=== PATIENT | female | born 1965 | race Caucasian/White ===

== ENCOUNTER 2017-03-06 11:50 | Inpatient (IN) | payer MEDICARE, OTHER ==
[~2017-03-06] VITALS: Ht 172.7 cm; Wt 97.5 kg
[~2017-03-06 11:50] MED LIST: ALBUTEROL2.5 MG/3 M INH; AMITIZA24 MCG PO; ASPIRIN325 MG PO; CLARITIN10 M2 PO; CRESTOR40 MG PO; CYMBALTA60 MG PO; FENOFIBRATE160 MG PO; FISH OIL 1,0001 EAC4 PO; FLEXERIL 10 MG10 MG PO; HABITROL 21 MG P1 EA TD; HUMALOG100 UNIT/1 SQ; LEVEMIR100 UNIT/1 SQ; NEURONTIN 400400 MG PO; NEXIUM40 MG PO; NORCO 5-325 TA1 EACH PO; PLAVIX 75 MG TA75 MG PO; PROVENTIL HFA 61 INH INH; PYRIDIUM100 MG PO; SPIRIVA HANDIH18 MCG INH; SYMBICORT 160-1 INHA INH; TYLENOL 325MG325 MG PO
[2017-03-06 12:59] LABS: RED BLOOD COUNT 5.16 M/UL (4.00-5.10); WHITE BLOOD COUNT 8.9 K/UL (4.5-11.0)
[2017-03-06 13:45] LABS: BUN/CREATININE RATIO 11 (0-10)
[2017-03-07 05:18] LABS: BUN/CREATININE RATIO 13 (0-10)
[2017-03-07 05:33] LABS: RED BLOOD COUNT 4.55 M/UL (4.00-5.10); WHITE BLOOD COUNT 12.5 K/UL (4.5-11.0)
[2017-03-07 05:34] LABS: HEMOGLOBIN 13.8 gm/dl (12.3-15.3)
[2017-03-08 05:34] LABS: RED BLOOD COUNT 4.66 M/UL (4.00-5.10)
[2017-03-08 05:53] LABS: BUN/CREATININE RATIO 12 (0-10)
[2017-03-09 05:01] LABS: BUN/CREATININE RATIO 12 (0-10)
[2017-03-09] MEDS ORDERED: BACTRIM DS TAB1 EACH PO (09:56)
[2017-03-09] MEDS ORDERED: TOPAMAX100 MG PO (19:49)
[2017-03-09] MEDS ORDERED: LORTAB 7.5-3251 EACH PO (19:50)
== END 2017-03-09 20:05 | disposition home health service (06) | DRG 345 ==
LOC: ER1 11:50 → ZEROF 18:48 → MED SURG 4 18:48
PROVIDERS: Emergency Medicine; Nurse Practitioner Family; ADMIT Surgery
PROC: 0D9P0ZZ Drainage of Rectum, Open Approach (ICD-10-PCS; principal; 2017-03-06 17:00)
DX: K61.1 Rectal abscess (principal); I69.351 Hemiplegia and hemiparesis following cerebral infarction affecting right dominant side; E11.65 Type 2 diabetes mellitus with hyperglycemia; J44.9 Chronic obstructive pulmonary disease, unspecified; E87.6 Hypokalemia; I70.203 Unspecified atherosclerosis of native arteries of extremities, bilateral legs; E78.2 Mixed hyperlipidemia; G43.909 Migraine, unspecified, not intractable, without status migrainosus; E53.8 Deficiency of other specified B group vitamins; E55.9 Vitamin D deficiency, unspecified; K21.9 Gastro-esophageal reflux disease without esophagitis; I65.02 Occlusion and stenosis of left vertebral artery; G89.29 Other chronic pain; M54.5 Low back pain; F32.9 Major depressive disorder, single episode, unspecified; F41.9 Anxiety disorder, unspecified; F17.200 Nicotine dependence, unspecified, uncomplicated; Z95.820 Peripheral vascular angioplasty status with implants and grafts; Z79.02 Long term (current) use of antithrombotics/antiplatelets; Z79.82 Long term (current) use of aspirin; Z79.1 Long term (current) use of non-steroidal anti-inflammatories (NSAID); Z79.4 Long term (current) use of insulin; Z79.891 Long term (current) use of opiate analgesic; Z79.51 Long term (current) use of inhaled steroids; Z79.899 Other long term (current) drug therapy; Z90.49 Acquired absence of other specified parts of digestive tract; Z98.890 Other specified postprocedural states; Z98.51 Tubal ligation status; Z83.3 Family history of diabetes mellitus; Z81.8 Family history of other mental and behavioral disorders
CPT/HCPCS: 36415; 80048; 80053; 81001; 82962; 84132; 85025; 85027; 87040; 94640; 96372; 96374; 99284; J1200; J1335; J1650; J2250; J2270; J2405; J2710; J3010; J7030; J7050; J7120